=== PATIENT | female | born 1985 | race Caucasian/White ===

== ENCOUNTER 2025-06-30 16:08 | Emergency (ER) | payer OTHER, SELFPAY ==
[2025-06-30] VITALS (13 sets, daily range): BP systolic 100–114; BP diastolic 65–81; PULSE 92–109; RESP 14–19; TEMP 37.3; O2SAT 95–97
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
[2025-06-30] MEDS: ACETAMINOPHEN 1,000 MG/100 ML BAG 400 MG IVPB (16:53)
[2025-06-30] MEDS: fentaNYL 100 MCG/2 ML VIAL 50 MCG IVP (16:53)
[2025-06-30 16:54] LABS: Abs Immature Grans 0.10 10^3/uL (0.0-0.06); HCT 34.8 % (36.0-46.0); HGB 10.5 g/dL (11.2-15.7); Immature Grans % 0.5 %; MCH 21.9 pg (27.0-33.0); MCHC 30.2 % (32.0-36.0); MCV 73 fL (80-95); RBC 4.79 10^6/uL (3.93-5.22); RDW 17.2 % (11.7-14.6); RDW-SD 45.1 fL; WBC 18.47 10^3/uL (4.4-10.8)
[2025-06-30 17:06] LABS: ALT 32 U/L (14-59); AST 22 U/L (15-37); Albumin 3.4 g/dL (3.4-5.0); Alkaline Phosphatase 68 U/L (46-116); Anion Gap 8.0 mmol/L (3-11); BUN 10 mg/dL (7-18); Bilirubin, Total 0.4 mg/dL (0.2-1.0); CO2 30.0 mmol/L (21.0-32.0); Calcium 8.0 mg/dL (8.5-10.1); Chloride 101 mmol/L (98-107); Estimated GFR 94.87 (mL/min/1.73m2); Glucose 185 mg/dL (74-106); Lipase 27 U/L (<78); Potassium 3.6 mmol/L (3.5-5.1); Sodium 139 mmol/L (136-145); Total Protein 7.8 g/dL (6.4-8.2)
[2025-06-30 17:07] LABS: HCG Qual (Serum) Negative
[2025-06-30 17:08] LABS: Microcytosis 1+
--- NOTE | 2025-06-30 17:35 | NUR.NOTE ---
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
--- NOTE | 2025-06-30 17:38 | DI.VRAD_ITS ---
PROCEDURE INFORMATION: Exam: CT Head Without Contrast Exam date and time: 06/30/2025 5:00 PM Age: 40 years old Clinical indication: Other: Trauma TECHNIQUE: Imaging protocol: Computed tomography of the head without contrast. Radiation optimization: All CT scans at this facility use at least one of these dose optimization techniques: automated exposure control; mA and/or kV adjustment per patient size (includes targeted exams where dose is matched to clinical indication); or iterative reconstruction. COMPARISON: No relevant prior studies available. FINDINGS: Brain: Normal. No hemorrhage. Unremarkable white matter. No mass effect. Cerebral ventricles: No ventriculomegaly. Paranasal sinuses: Visualized sinuses are unremarkable. No fluid levels. Mastoid air cells: Visualized mastoid air cells are well aerated. Bones: Unremarkable. No acute fracture. Soft tissues: Unremarkable. IMPRESSION: No acute intracranial abnormality. PROCEDURE INFORMATION: Exam: CT Cervical Spine Without Contrast Exam date and time: 06/30/2025 5:00 PM Age: 40 years old Clinical indication: Other: Trauma TECHNIQUE: Imaging protocol: Computed tomography of the cervical spine without contrast. Radiation optimization: All CT scans at this facility use at least one of these dose optimization techniques: automated exposure control; mA and/or kV adjustment per patient size (includes targeted exams where dose is matched to clinical indication); or iterative reconstruction. COMPARISON: No relevant prior studies available. FINDINGS: Bones: No acute fracture. Normal alignment. No significant disc bulge or herniation. No severe spinal canal stenosis. No significant neural foraminal narrowing. Lungs: Lung apices are normal. Soft tissues: Diminutive versus surgically absent thyroid IMPRESSION: No acute cervical spine fracture. Dictated and Authenticated by: Dino Gupta MD. Orderin Zoey Melissa MD
--- NOTE | 2025-06-30 17:39 | DI.VRAD_ITS ---
PROCEDURE INFORMATION: Exam: CT Thoracic Spine Without Contrast Exam date and time: 06/30/2025 5:06 PM Age: 40 years old Clinical indication: Other: Trauma TECHNIQUE: Imaging protocol: Computed tomography of the thoracic spine without contrast. Radiation optimization: All CT scans at this facility use at least one of these dose optimization techniques: automated exposure control; mA and/or kV adjustment per patient size (includes targeted exams where dose is matched to clinical indication); or iterative reconstruction. COMPARISON: CT HEAD CERVICAL SPINE WO 06/30/2025 5:00 PM FINDINGS: Bones/joints: No acute fracture. Normal alignment. No significant disc bulge or herniation. No severe spinal canal stenosis. No significant neural foraminal narrowing. Soft tissues: Unremarkable. Cardiomegaly noted IMPRESSION: No acute thoracic spine fracture. PROCEDURE INFORMATION: Exam: CT Lumbar Spine Without Contrast Exam date and time: 06/30/2025 5:06 PM Age: 40 years old Clinical indication: Other: Trauma TECHNIQUE: Imaging protocol: Computed tomography of the lumbar spine without contrast. Radiation optimization: All CT scans at this facility use at least one of these dose optimization techniques: automated exposure control; mA and/or kV adjustment per patient size (includes targeted exams where dose is matched to clinical indication); or iterative reconstruction. COMPARISON: CT CHEST/ABD/PEL W 06/30/2025 5:06 PM FINDINGS: Bones/joints: No acute fracture. Normal alignment. No significant disc bulge or herniation. No severe spinal canal stenosis. No significant neural foraminal narrowing. Soft tissues: Unremarkable. Fatty infiltration of the liver noted. Left renal cyst IMPRESSION: No acute lumbar spine fracture. Dictated and Authenticated by: Dino Gupta MD. Orderin Zoey Melissa MD
--- NOTE | 2025-06-30 17:40 | DI.VRAD_ITS ---
PROCEDURE INFORMATION: Exam: CT Chest With Contrast; Diagnostic Exam date and time: 06/30/2025 5:06 PM Age: 40 years old Clinical indication: Other: Trauma TECHNIQUE: Imaging protocol: Diagnostic computed tomography of the chest with contrast. Radiation optimization: All CT scans at this facility use at least one of these dose optimization techniques: automated exposure control; mA and/or kV adjustment per patient size (includes targeted exams where dose is matched to clinical indication); or iterative reconstruction. Contrast material: OMNI 350; Contrast volume: 100 ml; Contrast route: INTRAVENOUS (IV); COMPARISON: CT HEAD CERVICAL SPINE WO 06/30/2025 5:00 PM FINDINGS: Lungs: Minimal subsegmental atelectasis No consolidation. No masses. Pleural spaces: Unremarkable. No pneumothorax. No pleural effusion. Heart: Unremarkable. No cardiomegaly. No pericardial effusion. Lymph nodes: Unremarkable. No enlarged lymph nodes. Vasculature: Unremarkable. No aortic aneurysm. Bones/joints: Unremarkable. No acute fracture. Soft tissues: Mild swelling in the anterior right shoulder tissues IMPRESSION: No CT evidence for acute traumatic aortic injury. Mild swelling in the anterior right shoulder tissues PROCEDURE INFORMATION: Exam: CT Abdomen And Pelvis With Contrast Exam date and time: 06/30/2025 5:06 PM Age: 40 years old Clinical indication: Other: Trauma TECHNIQUE: Imaging protocol: Computed tomography of the abdomen and pelvis with contrast. Radiation optimization: All CT scans at this facility use at least one of these dose optimization techniques: automated exposure control; mA and/or kV adjustment per patient size (includes targeted exams where dose is matched to clinical indication); or iterative reconstruction. Contrast material: OMNI 350; Contrast volume: 100 ml; Contrast route: INTRAVENOUS (IV); COMPARISON: CT THORACIC LUMBAR SPINE REC 06/30/2025 5:06 PM FINDINGS: Liver: Fatty infiltration No mass. Gallbladder and biliary ducts: Normal. No calcified stones. No ductal dilation. Pancreas: Normal. No ductal dilation. Spleen: Normal. No splenomegaly. Adrenal glands: Normal. No mass. Kidneys and ureters: Left renal cyst No hydronephrosis. Stomach and bowel: Unremarkable. No obstruction. No mucosal thickening. Appendix: No evidence of appendicitis. Intraperitoneal space: Unremarkable. No free air. No significant fluid collection. Vasculature: Unremarkable. No abdominal aortic aneurysm. Lymph nodes: Unremarkable. No enlarged lymph nodes. Urinary bladder: Unremarkable as visualized. Reproductive: Intrauterine device in the uterus. Bones/joints: Unremarkable. No acute fracture. Soft tissues: Unremarkable. IMPRESSION: No solid organ injury detected Nonurgent findings as noted Dictated and Authenticated by: Dino Gupta MD. Orderin Zoey Melissa MD
[2025-06-30] MEDS: Normal Saline - Diluent 50 ML VIAL IJ (17:50)
[2025-06-30] MEDS: Omnipaque 350 MG/ML 100 ML BTL IJ (17:51)
--- NOTE | 2025-06-30 17:54 | DI.VRAD_ITS ---
PROCEDURE INFORMATION: Exam: XR Left Wrist Exam date and time: 06/30/2025 5:28 PM Age: 40 years old Clinical indication: Other: Trauma TECHNIQUE: Imaging protocol: Radiologic exam of the left wrist. Views: 3 or more views. COMPARISON: No relevant prior studies available. FINDINGS: Bones/joints: Normal. Soft tissues: Normal. IMPRESSION: No acute findings. Dictated and Authenticated by: Dino Gupta MD. Orderin Zoey Melissa MD
--- NOTE | 2025-06-30 17:54 | DI.VRAD_ITS ---
PROCEDURE INFORMATION: Exam: XR Right Hip Exam date and time: 06/30/2025 5:32 PM Age: 40 years old Clinical indication: Other: Trauma TECHNIQUE: Imaging protocol: Radiologic exam of the right hip. Views: 2 or 3 views hip with pelvis when performed. COMPARISON: No relevant prior studies available. FINDINGS: Bones/joints: Unremarkable. No acute fracture. Soft tissues: Intrauterine device noted. Contrast in the distal left ureter and bladder. IMPRESSION: No acute findings. Dictated and Authenticated by: Dino Gupta MD. Orderin Zoey Melissa MD
--- NOTE | 2025-06-30 17:54 | DI.VRAD_ITS ---
PROCEDURE INFORMATION: Exam: XR Right Ankle Exam date and time: 06/30/2025 5:24 PM Age: 40 years old Clinical indication: Other: Trauma TECHNIQUE: Imaging protocol: Radiologic exam of the right ankle. Views: 3 or more views. COMPARISON: No relevant prior studies available. FINDINGS: Bones/joints: Mild calcaneal spurs. No acute fracture or dislocation Soft tissues: Normal. IMPRESSION: No acute findings. Dictated and Authenticated by: Dino Gupta MD. Orderin Zoey Melissa MD
--- NOTE | 2025-06-30 17:55 | DI.VRAD_ITS ---
PROCEDURE INFORMATION: Exam: XR Right Shoulder Exam date and time: 06/30/2025 5:36 PM Age: 40 years old Clinical indication: Other: Trauma TECHNIQUE: Imaging protocol: Radiologic exam of the right shoulder. Views: 2 or more views. COMPARISON: CT CHEST/ABD/PEL W 06/30/2025 5:06 PM FINDINGS: Bones/joints: No acute fracture or dislocation Soft tissues: Normal. IMPRESSION: No acute findings. Dictated and Authenticated by: Dino Gupta MD. Orderin Zoye Melissa MD
[2025-06-30] MEDS: Lidocaine 5% Patch 1 PATCH TP (18:17)
[2025-06-30] MEDS: Ketorolac 15 MG/ML VIAL (18:18)
[2025-06-30 18:38] LABS: Glucose Negative (Negative)
[2025-06-30 18:44] LABS: C & S Indicated? No; RBC 0-2 HPF (0-2); WBC 0-2 HPF (0-5)
== END 2025-06-30 19:09 | disposition home or self-care (01) ==
PROVIDERS: Emergency Provider Nurse Practitioner Family; PCP Internal Medicine
DX: M25.511 Pain in right shoulder (principal); M25.532 Pain in left wrist; M25.551 Pain in right hip; M25.571 Pain in right ankle and joints of right foot; N28.1 Cyst of kidney, acquired; K76.0 Fatty (change of) liver, not elsewhere classified; D72.829 Elevated white blood cell count, unspecified; V27.09XA Other motorcycle driver injured in collision with fixed or stationary object in nontraffic accident, initial encounter
CPT/HCPCS: 99284; 99285; 36415; 00123; 74177; 76604; 76705; 76857; 80053; 83690; 70450; 71260; 72125; 73030; 73110; 73502; 73610; 81003; 81015; 84703; 85025; J0131; J1885; J3010; J3490